=== PATIENT | male | born 1995 | race Two or more races ===

== ENCOUNTER 2018-11-25 13:38 | Emergency (ER) | payer SELFPAY ==
[~2018-11-25] VITALS: Ht 172.7 cm; Wt 73.0 kg
[2018-11-25] MEDS ORDERED: ACETAMINOPHEN 325MG TABLET PO ONE (15:45)
[2018-11-25 16:46] LABS: BASOPHILS % 0.3 % (0.0-2.0); EOSINOPHILS % 0.7 % (0.0-5.0); HEMATOCRIT. 46.8 % (42.0-52.0); HEMOGLOBIN. 15.9 g/dL (14.0-18.0); LYMPHOCYTES % 27.2 % (20.0-50.0); MEAN CORPUSCULAR HEMOGLOBIN 29.2 pg (28.0-32.0); MEAN PLATELET VOLUME 7.5 fl (7.4-10.4); MONOCYTES % 8.6 % (2.0-8.0); NEUTROPHILS % 63.2 % (40.0-76.0); PLATELET 296 x1000/uL (130-400); RED BLOOD CELL COUNT 5.44 mill/uL (4.7-6.1); RED CELL DISTRIBUTION WIDTH 13.1 % (11.6-14.6)
[2018-11-25 16:54] LABS: CHLORIDE 103 mEq/L (98-107)
[2018-11-25 17:49] LABS: CLARITY URINE CLEAR (CLEAR); COLOR URINE YELLOW (YELLOW); KETONES URINE NEGATIVE (NEGATIVE); LEUKOCYTE ESTERASE URINE NEGATIVE (NEGATIVE); NITRITE URINE NEGATIVE (NEGATIVE); OCCULT BLOOD URINE TRACE (NEGATIVE); PROTEIN URINE NEGATIVE (NEGATIVE); SPECIFIC GRAVITY URINE 1.002 (1.005-1.030); UROBILINOGEN URINE 0.2 E.U./dL (0.2-1.0)
[2018-11-25] MEDS ORDERED: IOHEXOL-350 100 ML BOTTLE ONE (19:41)
[2018-11-25 19:43] VITALS: BP 136/74
== END 2018-11-25 19:47 | disposition home or self-care (01) ==
LOC: ER 13:38 → EDBD 13:38 → ER 19:47
DX: G43.909 Migraine, unspecified, not intractable, without status migrainosus (principal); H53.8 Other visual disturbances
CPT/HCPCS: 36415; 70496; 80053; 81003; 85025; 99284; Q9967